=== PATIENT | male | born 1960 ===

== ENCOUNTER 2023-06-21 10:47 | Outpatient (AMB) | payer MEDICAID, SELFPAY ==
--- NOTE | 2023-06-21 10:54 | A.OFFVIS_ITS ---
Intake Vital Signs 06/21/23 10:55 Height 5 ft 8 in Weight 198 lb 6.656 oz BMI 30.2 BP 112/78 Blood Pressure Location Lt brachial Position Sitting Pulse 79 Pulse Source Pulse Oximeter Temp 98 F Temp Source Skin Pulse Oximetry (%) 98 Oxygen Delivery Method Room Air Intake Visit Reasons: Inflammatory Polyarthropathy Intake Note: New patient here for inflammatory polyarthropathy c/o vishnu hand and feet pain and tingling, worse in the morning Manager Project Management Required: No Accompanied by: Self / Same As Patient Allergies No Known Allergies Allergy (Verified 06/21/23 10:54) Medication List - Last Reconciled 06/21/23 by Cheikh Braun MD HPI HPI Comments History of Present Illness Details The patient presents for evaluation of hand and foot pain. He also has episodic hand numbness. Records from his primary indicate he had episodes of inflammation in the knees tender 15 years ago. Treatment with sulfasalazine was undertaken but he did not seem to be able to tolerated. There was also some use of methotrexate for while but it was eventually felt not to be needed. The knees have not been significantly swollen in years. In 1984 he had a soccer injury of the ligaments he said in the left knee. This resulted in surgery. He seems to have recovered from that. He does have some swelling in the knee when he is very active on it. The hand pain seems to be mostly in the fingers. This is accompanied by some morning stiffness. He does not have any triggering. There is also some tingling and numbness in his fingers. This tends to come and go. He sounds like he did have nerve conduction studies done at [facility] years ago but he does not know exactly when. He was told the studies were normal however. He does take occasional ibuprofen for his hand symptoms and that seems to be helpful. The feet are painful mostly across the MTP regions, most of the with weight-bearing activities. He works as a electric lift truck driver. He was born in [place]. [facility] Medical History (Updated 06/21/23 @ 11:25 by Cheikh Braun MD) Adenomatous polyp COVID-19 GERD (gastroesophageal reflux disease) Inflammatory polyarthropathy Mixed hyperlipidemia Obesity Osteoarthritis of knee Thyroid nodule Type 2 diabetes mellitus without complication Surgical History History of surgery Hx of left knee surgery Family History (Updated 06/21/23 @ 11:00 by MIKEY Aragon) Father Malignant prostatic tumor Mother Disorder of thyroid gland Diabetes mellitus Arthritis Social History (Updated 06/21/23 @ 11:00 by MIKEY Aragon) Household Members: Spouse and Family Alcohol intake: current Alcohol intake frequency: a few times a week Patient Tobacco Use Status: Former Tobacco user Quit Date: 2008 Current occupational status: employed Current occupation: electric lift truck driver Review of Systems Const Details: Negative for appetite change, weight change, fever, chills, malaise and fatigue Eyes Details: Occasional itchy eyes attributed to allergies. Negative for vision change, dry eyes,headaches and dizziness ENT Details: Negative for hearing change, tinnitus, oral ulcer, nose bleeds and oral dryness. Card Details: He was put on low-dose atorvastatin but decided he did not need it. So we stopped it. Negative chest pain, edema and syncope Resp Details: Negative for SOB, cough and wheezing GI Details: Occasional heartburn at night if he eats a late meal. He does take probably sec for that occasionally in that helps. Negative nausea, abdominal pain, bowel changes, diarrhea, constipation and bloody stool. Details: Negative for dysuria, hematuria, nocturia, decreased force/flow and genital discharge Skin/Breast Details: Negative for itching, rash, hives, Raynaud's symptoms, sun sensitivity, and skin cancer Neuro Details: Negative for epilepsy, palsy, stroke, changes in speech, tingling and weakness Psych Details: Negative for anxiety, depression and stress Endo Details: He apparently has mild type 2 diabetes, currently diet controlled. Negative for polyuria and polydypsia Kwesi/Lymph Details: Negative for excessive bruising or bleeding. Physical Exam Vital Signs: Last Vital Signs Temp 98 F 06/21/23 10:55 Pulse 79 06/21/23 10:55 BP 112/78 06/21/23 10:55 Pulse Ox 98 06/21/23 10:55 Oxygen Delivery Method Room Air 06/21/23 10:55 BMI result Body Mass Index 30.2 APPEARANCE: Patient in no acute distress EYES no redness, pupils equal and reactive to light, eyelids normal EARS: External ear normal, canal clear and tympanic membrane normal. NOSE/SINUS: Airflow through both nares, no nasal discharge, no bleeding THROAT: Oral mucosa moist, no ulcerations NECK: No thyromegaly or masses, no adenopathy, trachea midline. HEART: Regulrar rhythm, S1-S2 heard, no murmurs, rubs or gallops. LUNG: Clear to percussion and auscultation ABD: Normal bowel sounds, no organomegaly, masses or tenderness. EXTREMITIES: No edema, no calf tenderness, normal peripheral pulses. NEURO: Oriented and alert x3. No focal weakness. Reflexes symmetric. Gait normal. SKIN: No inflammatory or neoplastic lesions. Normal color and turgor JOINT EXAM:?? Cervical Spine: Slight decrease in lateral flexion but lateral rotation seems intact without pain. No tenderness. Thoracic Spine:.? No scoliosis.? No tenderness on palpation. Lumbar Spine:.? Alignment normal.? Full range of motion without pain, no tenderness. Chest Wall:.? No tenderness, swelling, increased warmth or erythema. Hands:.? Right: Mild bony enlargement and tenderness at the base of the thumb. There is nontender bony enlargement at the thumb IP. There is mild tenderness and bony enlargement at the 2nd and 3rd distal IP joints. There is no flexor tendon triggering or sensory loss. There is no thenar atrophy or weakness. Left: Normal pain-free range of motion with mild tenderness at the base of the thumb. There is bony enlargement at the thumb IP, 2nd PIP, and 5th PIP joints. The 5th there is mild tenderness and some flexion deformity. There is no soft tissue swelling, triggering, thenar atrophy or sensory loss. There is mild bony enlargement at the 2nd through 5th distal IP joints. Wrists:.? Normal pain-free range of motion without tenderness, swelling, increased warmth or erythema. Elbows:. Normal pain-free range of motion without tenderness, swelling, increased warmth or erythema. Shoulders:.?? Full range of motion without pain. No tenderness, weakness, swelling, increased warmth or erythema. Hips:.? Full range of motion without pain. Hip bursa:.? No tenderness. Knees:.??Left: There is a rather large but well-healed anterior scar extending from the distal thigh to be on the tibial tubercle. He does not seem to have any tenderness or swelling along the scar. There is some minimal medial tenderness without redness or effusion. There is some slight patellofemoral crepitus. Right: Normal pain-free range of motion without tenderness, swelling, increased warmth or erythema.? There is no effusion or crepitation Ankles:.? Normal pain-free range of motion without tenderness, swelling, increased warmth or erythema. Feet: Right: Mild 1st MTP bony enlargement with some slight hammertoe deformity at the 2nd toe. There is also some mild hallux valgus at that 1st toe. Left:? Normal pain-free range of motion with slight bony enlargement at the 1st MTP joint but there is no tenderness in that joint. Elsewhere there is no tenderness, swelling, increased warmth or erythema. Tender points:.? No tenderness to digital palpation at the occiput, trapezius, second rib, lateral epicondyle, knees, greater trochanter and gluteal area bilaterally. ? Results Reviewed Results Reviewed: Lab work from the primary office showed previously occasionally positive DAMIAN but negative CCP antibody, rheumatoid factor, ESR, CRP and HLA B27. Assessment & Plan Assessment & Plan (1) Bilateral hand pain: Code(s): M79.641 - Pain in right hand; M79.642 - Pain in left hand (2) Bilateral hand numbness: Code(s): R20.0 - Anesthesia of skin (3) Osteoarthritis of knee: Code(s): M17.9 - Osteoarthritis of knee, unspecified Plan The patient has hand pain in many joints that seem to be involved with osteoarthritis. I do not really see any signs of an active inflammatory arthritis in his hands. He does have this longstanding complain of the paresthesias. These were apparently investigated in the past with nerve conduction studies but he was told the study was normal. He might benefit from more regular use of an NSAID's although that may be risky in light of his GERD symptoms. Acetaminophen I told him would not carry that risk. We could also try some topical diclofenac gel and seems to want to try that. He is going to obtain some [id number]. I gave him prescription for wrist splints to use nightly. It is suggestive of course that he might have some carpal tunnel symptoms but he is not feeling its bad enough to repeat the nerve conduction studies at this point. I told him to try to use the splints nightly for 6 weeks. If the numbness symptoms become more intolerable and do not go away with the splinting he could call us back and we would arrange nerve conduction studies. Medications: New Brace,wrist Use nightly on both wrists 2 ea 0RF R20.0 - Anesthesia of skin Coding Level of Care Code New Pt Level 3 (48041) Diagnoses Bilateral hand pain M79.641; M79.642 Bilateral hand numbness R20.0 Osteoarthritis of knee M17.9
[2023-06-21 10:55] VITALS: BP 112/78; PULSE 79; TEMP 36.6; O2SAT 98; BMI 30.2
== END 2023-06-21 11:31 | disposition home or self-care (01) ==
PROVIDERS: PCP Nurse Practitioner Family; Visit Provider Internal Medicine Rheumatology
DX: M79.641 Pain in right hand (principal); M79.642 Pain in left hand; R20.0 Anesthesia of skin; M17.9 Osteoarthritis of knee, unspecified
CPT/HCPCS: 99203

== ENCOUNTER → 2023-06-21 10:47 | Outpatient (BNVA) | payer MEDICAID, SELFPAY | PROVIDERS: Visit Provider Internal Medicine Rheumatology | DX: M79.641 Pain in right hand (principal); M79.642 Pain in left hand; M17.9 Osteoarthritis of knee, unspecified; R20.0 Anesthesia of skin | CPT/HCPCS: 99202 ==